=== PATIENT | female | born 1945 | race Caucasian/White ===

== ENCOUNTER 2023-07-22 14:36 | Observation (INO) | payer OTHER, BC ==
[2023-07-22 14:47] VITALS: BMI 29.2
[2023-07-22 16:10] LABS: BASO % 0.7 % (0-2.0); EOS % 0.7 % (0-4.5); HEMOGLOBIN 13.2 GM/dL (10.7-15.3); LYMPH % 18.7 % (8-40); MCH 29.2 pg (25.7-33.7); MCHC 33.8 g/dl (32.0-36.0); MEAN CELL VOLUME 86.3 fl (80-96); MEAN PLT VOLUME 8.5 fl (7.5-11.1); MONO % 7.4 % (3.8-10.2); NEUT % 72.5 % (42.8-82.8); PLATELET COUNT 240 10^3/uL (134-434); RBC 4.52 M/mm3 (3.60-5.2); RDW 13.8 % (11.6-15.6)
[2023-07-22 16:30] LABS: INR 1.1 (0.83-1.09); PROTHROMBIN TIME (PATIENT) 12.8 SEC (9.7-13.0)
[2023-07-22 16:33] LABS: ACTIVATED PTT 33.4 SECONDS (25.2-36.5)
[2023-07-22 16:42] LABS: POTASSIUM 3.9 mmol/L (3.5-5.1)
[2023-07-22 16:43] LABS: CALCIUM 9.4 mg/dL (8.5-10.1)
[2023-07-22 16:44] LABS: ALBUMIN 3.8 g/dl (3.4-5.0); BLOOD UREA NITROGEN 18.3 mg/dL (7-18)
[2023-07-22 16:47] LABS: CREATININE 0.7 mg/dL (0.55-1.3)
[2023-07-22 16:48] LABS: TOT PROT 7.3 g/dl (6.4-8.2)
[2023-07-22 16:49] LABS: BILIRUBIN,TOTAL 0.4 mg/dL (0.2-1)
[2023-07-22 17:00] LABS: EPI CELLS 2 /uL (0-25.1); HYALINE CASTS 0 /uL (0-3.1); PH,URINE 5.5 (5.0-8.0); URINE APPEARANCE CLEAR; URINE BACTERIA 15 /uL (0-1359); URINE BILIRUBIN NEGATIVE (NEGATIVE); URINE COLOR YELLOW; URINE GLUCOSE (UA) NEGATIVE (NEGATIVE); URINE KETONE NEGATIVE (NEGATIVE); URINE LEUK ESTERASE NEGATIVE (NEGATIVE); URINE NITRITE NEGATIVE (NEGATIVE); URINE PROTEIN NEGATIVE (NEGATIVE); URINE RBC 12 /uL (0-23.9); URINE UROBILINOGEN 0.2 mg/dL (0.2-1.0); URINE WBC 2 /uL (0-25.8)
[2023-07-23 00:56] LABS: METHADONE, UR NEGATIVE (NEGATIVE); OPIATES, URI NEGATIVE (NEGATIVE); URINE AMPHETAMINES NEGATIVE (NEGATIVE)
[2023-07-23 00:57] LABS: PHENCYCLIDINE,URINE NEGATIVE (NEGATIVE)
[2023-07-23 01:09] LABS: COCAINE, UR NEGATIVE (NEGATIVE); URINE BARBITURATES NEGATIVE (NEGATIVE); URINE BENZODIAZEPINES POSITIVE (NEGATIVE)
[2023-07-23] MEDS: LISINOPRIL 20 MG TABLET PO ONE (02:00)
[2023-07-23] MEDS: LISINOPRIL 20 MG TABLET PO SCH (10:40)
[2023-07-23] MEDS: SERTRALINE HCL 50 MG TABLET (FP) PO SCH (10:40)
[2023-07-23] MEDS: SODIUM CHLORIDE 1,000 ML IV SCH (10:40)
[2023-07-23] MEDS: ENOXAPARIN NA (PORCINE) 40 MG/0.4 ML DISP.SYRIN SQ SCH (10:40)
[2023-07-23] MEDS ORDERED: diazePAM 2 MG TABLET PO PRN (14:20)
[2023-07-23] MEDS ORDERED: DOCUSATE SODIUM 100 MG CAPSULE (FP) PO PRN (14:27)
[2023-07-23] MEDS: levETIRAcetam 500 MG/5 ML INJECTION VIAL IVPB ONE (20:03)
[2023-07-23 22:28] VITALS: RESP 18
[2023-07-23] MEDS: diazePAM 2 MG TABLET PO SCH (22:29)
[2023-07-24 06:07] VITALS: TEMP 98.1
[2023-07-24] MEDS: levETIRAcetam 500 MG TABLET (FP) PO SCH (10:46)
[2023-07-24 15:08] VITALS: BP 157/68; PULSE 74
== END 2023-07-24 15:28 | disposition home health service (06) ==
LOC: JER 14:36 → JERBED 20:09 → J4W 07-23 04:00
PROVIDERS: ADMIT Internal Medicine; ATTEND Internal Medicine
PROC: 3E023GC Introduction of Other Therapeutic Substance into Muscle, Percutaneous Approach (ICD-10-PCS; principal; 2023-07-22)
PROC: 3E033GC Introduction of Other Therapeutic Substance into Peripheral Vein, Percutaneous Approach (ICD-10-PCS; 2023-07-22)
DX: R42 Dizziness and giddiness (principal); K58.9 Irritable bowel syndrome, unspecified; F41.8 Other specified anxiety disorders; S05.12XA Contusion of eyeball and orbital tissues, left eye, initial encounter; S05.11XA Contusion of eyeball and orbital tissues, right eye, initial encounter; H93.19 Tinnitus, unspecified ear; I16.0 Hypertensive urgency; R56.9 Unspecified convulsions; W18.39XA Other fall on same level, initial encounter; Y93.89 Activity, other specified; Y92.89 Other specified places as the place of occurrence of the external cause; Z88.0 Allergy status to penicillin; J30.81 Allergic rhinitis due to animal (cat) (dog) hair and dander; Z91.018 Allergy to other foods
CPT/HCPCS: 0241U-QW; 36415; 70450-TC; 70486-TC; 71045-TC-FY; 72125-TC; 80053; 80307; 81003; 83036; 83735; 84484; 85025; 85610; 85730; 86850; 86900; 86901; 87086; 93005; 93010; 96361; 96372; 96374; 97116-GP; 99285-25; G0378